=== PATIENT | female | born 1945 | race African-American/Black ===

== ENCOUNTER 2018-10-13 02:15 | Emergency (ER) | payer OTHER ==
[2018-10-13 02:34] VITALS: BP 161/87; PULSE 82; TEMP 98; BMI 39.1
[2018-10-13] MEDS ORDERED: LORazepam 1 MG TABLET PO ONE (02:52)
--- NOTE | 2018-10-13 03:04 | PDOC ---
History of Present Illness - General Chief Complaint: Psychiatric Stated Complaint: GOT THE TRESKES Time Seen by Provider: 10/13/18 02:29 History Source: Patient Exam Limitations: No Limitations - History of Present Illness Initial Comments: 10/13/18 02:50 Patient is a 73 year old female with HTN, Hypothyroid, b/l knee replacement, back surgery, c/o "I am feeling shaky and want something to calm my nerves". States she was with her grandson when he started shaking, became unconscious. States that at that point he was and she got very frightened, and she was shaking. She had no chest pain, diaphoresis, sob, dizziness. PMD: Dr. Marlon Cueva PMHX: as above ALL: NKDA GENERAL/CONSTITUTIONAL: [No fever or chills. No weakness. No weight change.] HEAD, EYES, EARS, NOSE AND THROAT: [No change in vision. No ear pain or discharge. No sore throat.] CARDIOVASCULAR: [No chest pain or shortness of breath.] RESPIRATORY: [No cough, wheezing, or hemoptysis.] GASTROINTESTINAL: [No nausea, vomiting, diarrhea or constipation. No rectal bleeding.] GENITOURINARY: [No dysuria, frequency, or change in urination.] MUSCULOSKELETAL: [No joint or muscle swelling or pain. No neck or back pain.] SKIN AND BREASTS: [No rash or easy bruising.] NEUROLOGIC: [No headache, vertigo, loss of consciousness, or loss of sensation.] PSYCHIATRIC: [No depression or anxiety.] ENDOCRINE: [No increased thirst. No abnormal weight change.] HEMATOLOGIC/LYMPHATIC: [No anemia, easy bleeding, or history of blood clots.] ALLERGIC/IMMUNOLOGIC: [No hives or skin allergy. No latex allergy.] GENERAL: [The patient is awake, alert, and fully oriented, in mild distress, shaking.] HEAD: [Normal with no signs of trauma.] EYES: [Pupils equal, round and reactive to light, extraocular movements intact, sclera anicteric, conjunctiva clear.] ENT: [Ears normal, nares patent, oropharynx clear without exudates. Moist mucous membranes.] NECK: [Normal range of motion, supple without lymphadenopathy, JVD, or masses.] LUNGS: [Breath sounds equal, clear to auscultation bilaterally. No wheezes, and no crackles.] HEART: [Regular rate and rhythm, normal S1 and S2 without murmur, rub.] ABDOMEN: [Soft, nontender, normoactive bowel sounds. No guarding, no rebound. No masses.] EXTREMITIES: [Normal range of motion, no edema. No clubbing or cyanosis. No cords, erythema, or tenderness.] NEUROLOGICAL: [Cranial nerves II through XII grossly intact. Normal speech, normal gait, cerebella function intact PSYCH: [Normal mood, normal affect.] SKIN: [Warm, Dry, normal turgor, no rashes or lesions noted.] Past History - Past Medical History Allergies/Adverse Reactions: Allergies Allergy/AdvReac Type Severity Reaction Status Date / Time No Known Drug Allergies Allergy Verified 10/13/18 02:30 Home Medications: Ambulatory Orders Amlodipine Besylate [Norvasc -] 10 mg PO DAILY 06/22/14 Levothyroxine [Synthroid -] 150 mcg PO DAILY 06/22/14 Losartan/Hydrochlorothiazide [Losartan-Hctz 100-25 mg Tab] 1 tab PO DAILY Iron,Carb/Vit C/Vit B12/Folic [Iron 100 Plus Tablet] 1 each PO DAILY 10/19/15 Metoprolol Tartrate [Lopressor -] 25 mg PO DAILY 10/19/15 Aspirin [ASA -] 325 mg PO DAILY@0800 tablet 10/20/15 Oxycodone HCl/Acetaminophen [Oxycodone-Acetaminophen 5-325] 1 tab PO PRN Meloxicam 15 mg PO DAILY 30 Days #30 tablet MDD 15mg 02/27/18 Anemia: No Asthma: No Cancer: No Cardiac Disorders: No CVA: No COPD: No CHF: No Dementia: No Diabetes: No GI Disorders: No Disorders: No HTN: Yes Hypercholesterolemia: No Liver Disease: No Seizures: No Thyroid Disease: Yes - Surgical History Abdominal Surgery: No Appendectomy: No Cardiac Surgery: No Cholecystectomy: No Lung Surgery: No Neurologic Surgery: Yes (BACK SX) Orthopedic Surgery: Yes (LEFT KNEE REPLACEMENT) - Suicide/Smoking/Psychosocial Hx Smoking History: Never smoked Have you smoked in the past 12 months: No Information on smoking cessation initiated: No Hx Alcohol Use: No Drug/Substance Use Hx: No Substance Use Type: None Hx Substance Use Treatment: No *Physical Exam - Vital Signs Last Vital Signs Temp Pulse Resp BP Pulse Ox 98.0 F 82 18 161/87 98 10/13/18 02:30 10/13/18 02:30 10/13/18 02:30 10/13/18 02:30 10/13/18 02:30 Moderate Sedation - Procedure Monitoring Vital Signs: Procedure Monitoring Vital Signs Temperature 98.0 F 10/13/18 02:30 Pulse Rate 82 10/13/18 02:30 Respiratory Rate 18 10/13/18 02:30 Blood Pressure 161/87 10/13/18 02:30 O2 Sat by Pulse Oximetry (%) 98 10/13/18 02:30 Medical Decision Making - Medical Decision Making 10/13/18 02:50 Patient is a 73 year old female with HTN, Hypothyroid, b/l knee replacement, back surgery, c/o "I am feeling shaky and want something to calm my nerves". States she was with her grandson when he started shaking, became unconscious. States that at that point he was and she got very frightened, and she was shaking. She had no chest pain, diaphoresis, sob, dizziness. ativan 1mg po reassess I discussed the physical exam findings, ancillary test results and final diagnoses with the patient. I answered all of the patient's questions. The patient was satisfied with the care received and felt comfortable with the discharge plan and treatment plan. The Patient agrees to follow up with the primary care physician within 24-72 hours. *DC/Admit/Observation/Transfer Diagnosis at time of Disposition: Stress reaction - Discharge Dispostion Disposition: HOME Condition at time of disposition: Stable - Referrals Referrals: Marlon Cueva MD [Primary Care Provider] - - Patient Instructions Printed Discharge Instructions: DI for Anxiety -- Adult Additional Instructions: Your Discharge Instructions: You must call primary care physician within 24 hours to arrange follow-up. Return to the Emergency Department with any new, persistent or worsening symptoms, for fever, chills, SOB, dizziness or any other concerning changes that may occur. - Post Discharge Activity
[2018-10-13] MEDS ORDERED: LORazepam 0.5 MG TABLET ONE (03:07)
== END 2018-10-13 04:47 | disposition home or self-care (01) ==
LOC: JER 02:15
DX: F43.9 Reaction to severe stress, unspecified (principal); I10 Essential (primary) hypertension; E03.9 Hypothyroidism, unspecified; Z96.653 Presence of artificial knee joint, bilateral
CPT/HCPCS: 99282-25

== ENCOUNTER 2022-02-10 18:23 | Emergency (ER) | payer OTHER ==
[2022-02-10 18:29] VITALS: BP 164/78; PULSE 88; TEMP 99.4; BMI 39.1
[2022-02-11 16:07] LABS: SARS-CoV-2 NAA Detected (Not Detected)
== END 2022-02-10 20:58 | disposition home or self-care (01) ==
LOC: JER 18:23
DX: U07.1 COVID-19 (principal)
CPT/HCPCS: 71046-TC-FY; 87804; 99284-25; C9803-CS; U0003; U0005

== ENCOUNTER 2022-02-12 08:56 | Emergency (ER) | payer OTHER ==
[2022-02-12 10:02] VITALS: BP 153/82; PULSE 86; TEMP 98.2; BMI 39.1
[2022-02-12] MEDS ORDERED: BEBTELOVIMAB (EUA) 175 MG/2 ML VIAL IVPUSH ONE (10:16)
== END 2022-02-12 12:48 | disposition home or self-care (01) ==
LOC: JCOVINFU 08:56 → JER 08:56 → JCOVINFU 12:48
DX: U07.1 COVID-19 (principal)
CPT/HCPCS: 99284-25; M0222; Q0222

== ENCOUNTER 2022-05-17 10:36 | Emergency (ER) | payer OTHER ==
[2022-05-17 10:41] VITALS: BP 170/84; PULSE 78; TEMP 98.1; BMI 38.2
[2022-05-17] MEDS ORDERED: morphine CARPU-JECT 4 MG/1 ML DISP.SYRIN IVPUSH ONE (11:44)
[2022-05-17] MEDS ORDERED: SODIUM CHLORIDE 1,000 ML IV STA (11:44)
[2022-05-17] MEDS ORDERED: ONDANSETRON 4 MG/2 ML VIAL IVPUSH ONE (11:44)
[2022-05-17] MEDS ORDERED: morphine SULFATE 4 MG/ML VIAL ONE (11:49)
[2022-05-17] MEDS ORDERED: ONDANSETRON 4 MG/2 ML VIAL ONE (11:49)
[2022-05-17 12:55] LABS: EOS % 1.7 % (0-4.5); HEMATOCRIT 44.7 % (32.4-45.2); HEMOGLOBIN 14.7 GM/dL (10.7-15.3); LYMPH % 24.6 % (8-40); MCH 27.3 pg (25.7-33.7); MCHC 32.9 g/dl (32.0-36.0); MEAN CELL VOLUME 82.9 fl (80-96); MEAN PLT VOLUME 8.7 fl (7.5-11.1); MONO % 10.7 % (3.8-10.2); PLATELET COUNT 318 10^3/uL (134-434); RBC 5.39 M/mm3 (3.60-5.2); RDW 16.6 % (11.6-15.6); WHITE BLOOD COUNT 8.3 K/mm3 (4.0-10.0)
[2022-05-17 13:01] LABS: EPI CELLS 6 /uL (0-25.1); HYALINE CASTS 1 /uL (0-3.1); URINE APPEARANCE CLEAR; URINE BACTERIA 8 /uL (0-1359); URINE BILIRUBIN NEGATIVE (NEGATIVE); URINE COLOR YELLOW; URINE GLUCOSE (UA) NEGATIVE (NEGATIVE); URINE KETONE NEGATIVE (NEGATIVE); URINE LEUK ESTERASE NEGATIVE (NEGATIVE); URINE NITRITE NEGATIVE (NEGATIVE); URINE PROTEIN 2+ (NEGATIVE); URINE RBC 6 /uL (0-23.9); URINE UROBILINOGEN 0.2 mg/dL (0.2-1.0); URINE WBC 6 /uL (0-25.8)
[2022-05-17 13:49] LABS: CALCIUM 9.9 mg/dL (8.5-10.1)
[2022-05-17 13:50] LABS: ALBUMIN 4.2 g/dl (3.4-5.0)
[2022-05-17 13:55] LABS: BILIRUBIN,TOTAL 0.5 mg/dL (0.2-1); TOT PROT 8.4 g/dl (6.4-8.2)
== END 2022-05-17 15:51 | disposition home or self-care (01) ==
LOC: JERFT 10:36
PROC: 3E033NZ Introduction of Analgesics, Hypnotics, Sedatives into Peripheral Vein, Percutaneous Approach (ICD-10-PCS; principal; 2022-05-17)
PROC: 3E033GC Introduction of Other Therapeutic Substance into Peripheral Vein, Percutaneous Approach (ICD-10-PCS; 2022-05-17)
PROC: 3E0337Z Introduction of Electrolytic and Water Balance Substance into Peripheral Vein, Percutaneous Approach (ICD-10-PCS; 2022-05-17)
DX: K57.90 Diverticulosis of intestine, part unspecified, without perforation or abscess without bleeding (principal)
CPT/HCPCS: 36415; 74177-TC; 80053; 81003; 85025; 87086; 99285-25; Q9967

== ENCOUNTER → 2024-10-23 | Day surgery (SDC) | payer MEDICARE ==
[2024-10-22 15:37] VITALS: BMI 38.6
[~2024-10-23] MED LIST: ACETAMINOPHEN 500 MG TABLET (FP) PO PRN
[2024-10-23 13:59] VITALS: RESP 20
[2024-10-23] MEDS: LIDOCAINE HCL 1% PRESERVATIVE FREE - 30ML VIAL INF ONE (15:03)
[2024-10-23] MEDS: DEXAMETHASONE SOD PHOSPHATE 20 MG/5 ML VIAL IM ONE (15:04)
[2024-10-23 15:39] VITALS: BP 163/78; PULSE 61; TEMP 97.8
== END | disposition home or self-care (01) ==
LOC: JASU-SURG 09:30
PROVIDERS: ATTEND Pain Medicine Pain Medicine
PROC: 3E0R3BZ Introduction of Anesthetic Agent into Spinal Canal, Percutaneous Approach (ICD-10-PCS; 2024-10-23)
PROC: 3E0R33Z Introduction of Anti-inflammatory into Spinal Canal, Percutaneous Approach (ICD-10-PCS; principal; 2024-10-23 15:15)
DX: M54.16 Radiculopathy, lumbar region (principal)
CPT/HCPCS: 76000-TC-FY

== ENCOUNTER 2024-11-20 04:13 | Day surgery (SDC) | payer MEDICARE ==
[2024-11-20 06:56] VITALS: BMI 38.6
[2024-11-20] MEDS ORDERED: ACETAMINOPHEN 500 MG TABLET (FP) PO PRN (08:45)
== END 2024-11-20 08:40 | disposition home or self-care (01) ==
LOC: JASU-SURG 04:13
PROVIDERS: ATTEND Pain Medicine Pain Medicine
DX: Z53.8 Procedure and treatment not carried out for other reasons (principal)

== ENCOUNTER 2024-11-27 04:09 | Day surgery (SDC) | payer MEDICARE ==
[2024-11-26 15:51] VITALS: BMI 38.6
[2024-11-27] MEDS ORDERED: LIDOCAINE HCL/PF 2% SDV 5ML VIAL ONE ×2 (07:19→13:21)
[2024-11-27] MEDS ORDERED: LIDOCAINE HCL/PF 1% SDV 5ML VIAL ONE ×2 (07:20→13:52)
[2024-11-27] MEDS: ceFAZolin SODIUM 1 GM VIAL IVPB ONE (13:49)
[2024-11-27] MEDS: LIDOCAINE HCL/PF 2% SDV 5ML VIAL INF ONE ×2 (13:52)
[2024-11-27] MEDS: LIDOCAINE HCL 1% PRESERVATIVE FREE - 30ML VIAL IJ ONE ×2 (13:52)
[2024-11-27] MEDS: IOHEXOL 300 MG/ML INFUS..BTL IV ONE ×2 (14:00)
[2024-11-27] MEDS ORDERED: ONDANSETRON 4 MG/2 ML VIAL IVPUSH PRN (15:27)
[2024-11-27] MEDS ORDERED: LACTATED RINGERS SOLUTION 1,000 ML IV SCH (15:30)
[2024-11-27 17:57] VITALS: BP 143/64; PULSE 60; RESP 17; TEMP 97.7
== END 2024-11-27 17:26 | disposition home or self-care (01) ==
LOC: JASU-SURG 04:09
PROVIDERS: ATTEND Pain Medicine Pain Medicine
PROC: 01NB3ZZ Release Lumbar Nerve, Percutaneous Approach (ICD-10-PCS; principal; 2024-11-27 13:15)
DX: M48.062 Spinal stenosis, lumbar region with neurogenic claudication (principal)
CPT/HCPCS: 0275T; C1889; 76000-TC-FY; 88304-TC; 94760

== ENCOUNTER 2025-01-13 14:29 | Emergency (ER) | payer MEDICARE ==
[2025-01-13 14:43] VITALS: BP 168/75; PULSE 62; RESP 20; TEMP 98.4; BMI 42.0
[2025-01-13] MEDS ORDERED: ACETAMINOPHEN 325 MG TABLET (FP) ONE (15:08)
[2025-01-13] MEDS ORDERED: LIDOCAINE 5% TOPICAL PATCH ONE (15:09)
[2025-01-13] MEDS: LIDOCAINE 5% TOPICAL PATCH TP ONE (15:25)
[2025-01-13] MEDS: ACETAMINOPHEN 325 MG TABLET (FP) PO ONE (15:25)
[2025-01-13] MEDS ORDERED: KETOROLAC TROMETHAMINE 30 MG/1 ML VIAL ONE (17:22)
[2025-01-13] MEDS ORDERED: METHOCARBAMOL 500 MG TABLET ONE (17:22)
[2025-01-13] MEDS: METHOCARBAMOL 500 MG TABLET PO ONE (17:32)
[2025-01-13] MEDS: KETOROLAC TROMETHAMINE 15 MG/ML VIAL IM ONE (17:32)
[2025-01-13] MEDS ORDERED: LIDOCAINE PATCH REMOVAL MC SCH (22:00)
== END 2025-01-13 18:54 | disposition home or self-care (01) ==
LOC: JER 14:29
PROC: 3E0233Z Introduction of Anti-inflammatory into Muscle, Percutaneous Approach (ICD-10-PCS; principal; 2025-01-13)
DX: M54.50 Low back pain, unspecified (principal)
CPT/HCPCS: 73502-TC-RT-FY; 99284-25

== ENCOUNTER 2025-02-05 12:41 | Day surgery (SDC) | payer MEDICARE ==
[2025-01-25 10:38] VITALS: BMI 38.6
[2025-02-05] MEDS: LIDOCAINE HCL 1% PRESERVATIVE FREE - 30ML VIAL IJ ONE ×2 (12:01)
[2025-02-05] MEDS: IOHEXOL 180 MG/1 ML ML IJ ONE ×2 (12:05)
[2025-02-05] MEDS: BUPIVACAINE HCL/PF 0.5% (5 MG/ML) 30 ML VIAL IJ ONE ×2 (12:07)
[2025-02-05] MEDS: TRIAMCINOLONE ACET 40MG/1ML VIAL IM ONE ×2 (12:07)
[2025-02-05 12:23] VITALS: BP 145/74; PULSE 62; RESP 16; TEMP 97.8
== END 2025-02-05 13:04 | disposition home or self-care (01) ==
LOC: JASU-SURG 12:41
PROVIDERS: ATTEND Pain Medicine Pain Medicine
PROC: 3E0U3BZ Introduction of Anesthetic Agent into Joints, Percutaneous Approach (ICD-10-PCS; 2025-02-05)
PROC: 3E0U33Z Introduction of Anti-inflammatory into Joints, Percutaneous Approach (ICD-10-PCS; principal; 2025-02-05 12:30)
DX: M53.3 Sacrococcygeal disorders, not elsewhere classified (principal)
CPT/HCPCS: 76000-TC-FY

== ENCOUNTER 2025-07-21 11:15 | Emergency (ER) | payer MEDICARE ==
[2025-07-21 11:29] VITALS: TEMP 98.8; BMI 39.1
[2025-07-21 15:12] LABS: ABSOLUTE IMMATURE GRANULOCYTES 0.12 x10^3/uL (0.0-0.031); BASOPHILS # 0.03 x10^3/uL (0.01-0.08); EOSINOPHIL % 1.2 % (0.7-5.8); EOSINOPHILS # 0.09 x10^3/uL (0.04-0.36); MCHC 30.6 g/dl (32.2-35.5); MEAN CELL VOLUME 88.4 fl (79.4-94.8); MEAN PLT VOLUME 10.2 fl (9.4-12.3); MONOCYTE # 0.73 x10^3/uL (0.24-0.86); MONOCYTE % 9.4 % (4.7-12.5); RDW 14.3 % (12.4-16.6)
[2025-07-21 15:21] LABS: GLUCOSE,RANDOM 98.0 mg/dL (74-106)
[2025-07-21 15:22] LABS: CO2 30.0 mmol/L (21-32); TOT PROT 7.2 g/dl (6.4-8.2)
[2025-07-21 15:24] LABS: ALK PHOS 63.0 U/L (40-150)
[2025-07-21 15:27] LABS: CREATININE 0.94 mg/dL (0.55-1.3); SGOT/AST 15.0 U/L (5-34); SGPT/ALT 13.0 U/L (0-55)
[2025-07-21 15:35] LABS: N-TERMINAL BNP 161.4 pg/mL (0-299.9)
[2025-07-21 15:49] LABS: HIV INTERPRETATION NEGATIVE (NEGATIVE)
[2025-07-21 15:50] LABS: HCV DIAGNOSTIC IN-HOUSE W/RFLX NON-REACTIVE (NONREACTIVE)
[2025-07-21 18:35] VITALS: BP 164/76; PULSE 60; RESP 18
== END 2025-07-21 18:35 | disposition home or self-care (01) ==
LOC: JER 11:15
DX: R05.9 Cough, unspecified (principal); R50.9 Fever, unspecified; M79.10 Myalgia, unspecified site; R06.02 Shortness of breath; R63.8 Other symptoms and signs concerning food and fluid intake
CPT/HCPCS: 36415; 71045-TC-FY; 71275-TC; 80053; 83735; 83880; 84484; 85025; 85379; 86803; 87389; 87637-QW; 93005; 93010; 99285-25; Q9967